=== PATIENT | female | born 1995 | race Hispanic/Latino ===

== ENCOUNTER 2017-12-02 16:19 | Emergency (ER) | payer OTHER ==
[2017-12-02] MEDS ORDERED: AMOXICILLIN500 M2 PO (16:54)
[2017-12-02] MEDS ORDERED: CORTISPORIN OTI10 ML AD (16:55)
[2017-12-02 17:00] VITALS: BP 121/77
== END 2017-12-02 17:00 | disposition home or self-care (01) | DRG 153 ==
LOC: ED 16:19
DX: H66.91 Otitis media, unspecified, right ear (principal)